=== PATIENT | male | born 1935 | race Caucasian/White ===

== ENCOUNTER 2018-09-15 10:02 | Inpatient (IN) | payer OTHER ==
[~2018-09-15] VITALS: Ht 177.8 cm; Wt 81.1 kg
--- NOTE | ~2018-09-15 | HC ---
[facility] [place] [address] CONSULTATION Name: PO KEITA Room #: 217-P ADM IN M.R.#: [id number] Admission: 09/15/18 ������������������ Attend Phys: Vernon Day MD Discharge: ������������������ Date of : 31 Report #: [id number] THIS REPORT FOR: //name// CC: Vernon Day DATE OF SERVICE: 09/15/2018 HISTORY OF PRESENT ILLNESS: This is an 83-year-old male patient who was evaluated by me for neurological etiologies for the patient's lightheadedness. It looks like this patient's blood pressure is running high. That is going on for at least some time. He took his medication on as needed basis only. The medication was prescribed for hypertension. From all indication, it looks like the hypertension was severe. What was its relation to medication is not clear. The episode he had was transient. It was not associated with altered mental status according to the family. 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 That was several years ago. He saw a neurologist, Dr. Delvalle. I do not know what workup was done. He does have prior history of coronary artery disease. He had no contraindication for doing the MRI. He went to [facility] and looks like they were trying to admit him there, but he wanted to get admitted there. They do a CT scan of the head there and that was unremarkable. He does have a history of hypothyroidism. He is on statin therapy. He thinks part of his problem was because he was taking all the medications at the same time. A 14-point review of systems was carried out. He feels back to his baseline. He does not feel he has any visual, ENT, cardiac, respiratory, GI, , musculoskeletal, constitutional, dermatological, hematological, psychiatric, throat, allergic symptom associated with present symptomatology. In fact, he feels back to his baseline. 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 FAMILY HISTORY: Negative for early age stroke. SOCIAL HISTORY: He has a supportive family and I talked to the patient's daughter and the patient's . PHYSICAL EXAMINATION: NEUROLOGICAL: Examinations indicate he is alert and responsive, able to follow simple and complex command. His speech, concentration, fund of knowledge and memory is at his baseline. Cranial nerve examination 2 through 12 looks unremarkable. Strength, sensation, reflexes and tone looks symmetrical. There is no meningeal sign. There is no cerebellar sign. NECK: There is no carotid bruit. EXTREMITIES: He has no edema. GENERAL: He is moderately built individual who does not have any dysmorphic [address] [address] CONSULTATION Name: PO KEITA Room #: [facility] IN M.R.#: [id number] Admission: 09/15/18 ������������������ Attend Phys: Vernon Day MD Discharge: ������������������ Date of : 31 Report #: [id number] features of eyes, ears and face. HEENT: His vision and hearing looks adequate. CARDIAC: Pulses appeared to be palpable. LUNGS: He has no respiratory difficulty and there are no rhonchi. VITAL SIGNS: Blood pressure is 115/61, respiration is 18, pulse is 68 and temperature is 98. LABORATORY DATA: His labs indicate a white count of 9.0. Blood sugar of 186. RADIOLOGICAL DATA: A CT scan of the head was done in [place] and that does not show any acute abnormality. IMPRESSION: Most likely etiology for the patient's symptom is labile hypertension, but the patient has a significant history of vascular disease, especially coronary artery disease in the past and because of that posterior fossa etiology need to be excluded in this patient. I discussed that aspect with the patient and the family and I suggested an MRI of the brain and MRA of the head and neck. They want to proceed with it. We will schedule that and then follow up on that. RECOMMENDATIONS: 1. MRI of the brain. 2. MRA of the head. 3. MRA of the neck. 4. Other workup including cardiology workup and workup for the labile hypertension. 5. We will look at this workup and follow up with you. Thank you very much for this referral. ��������������������������������������������� ���������������������������������������� By: ��������������������������������������������� [id number] Phill Hector MD /nt
[~2018-09-15 10:02] MED LIST: ASPIRIN EC325 M1 PO; ASPIRIN EC81 M1 PO; COUMADIN 5 MG TA5 M1 PO; CRESTOR 10 MG PO; JANTOVEN7.5 MG PO; LEVOXYL125 MCG PO; LISINOPRIL-HCT1 EACH PO; LORTAB 5 MG/5001 TA1 PO; METOPROLOL SUCCINATE 50 MG PO; NIACIN 500 MG500 M1 PO; OCUVITE TABLET1 EAC1 PO; PERCOCET 5-3251 EACH PO; PHISOHEX148 ML TP; Plavix 75 Mg Tab PO; SIMVASTATIN40 MG PO; ULTRAM 50MG TAB50 MG PO; ZOLOFT 50 MG TA50 M1 PO
[2018-09-15] MEDS ORDERED: LISINOPRIL2.5 MG PO (11:14)
[2018-09-15] MEDS ORDERED: LOPRESSOR25 PO (11:14)
[2018-09-15] MEDS ORDERED: ASPIR 8181 MG PO (11:15)
[2018-09-15] MEDS ORDERED: LIPITOR 20 MG T20 M1 PO (11:15)
[2018-09-15 11:26] VITALS: BP 157/63
[2018-09-15 11:37] LABS: ABSOLUTE NEUTROPHILS 7.3 thou/uL (1.4-8.2); BASOPHILS 0.3 % (0.0-2.0); EOSINOPHILS 0.1 % (0.0-3.0); HEMATOCRIT 44.8 % (42.0-52.0); HEMOGLOBIN 15.6 gm/dL (14.0-18.0); LYMPHOCYTES 14.2 % (24.0-44.0); MCH 31.7 pg (26.0-34.0); MCHC 34.8 g/dL (28.0-37.0); MONOCYTES 4.9 % (1.0-8.0); PLATELET COUNT 166 thou/uL (150-400); POLYS 80.5 % (36.0-66.0); RBC 4.92 mil/uL (4.50-6.00); RDW 13.5 % (10.5-14.5)
[2018-09-15 11:50] LABS: ALBUMIN 3.4 g/dL (3.4-5.0); CALCIUM 8.9 mg/dL (8.5-10.1); CREATININE 0.8 mg/dL (0.7-1.3); POTASSIUM 4.5 mmol/L (3.5-5.1); TOTAL PROTEIN 6.3 g/dL (6.4-8.2)
[2018-09-15 11:55] VITALS: BP 132/72; BP 150/81
[2018-09-15 11:56] VITALS: BP 142/74
--- NOTE | 2018-09-15 11:56 | NUR ---
ORTHOSTATIC BP - LAYING BP 132/72 , HR 61 SITTING BP 150/81 ,HR 69 STANDING BP 142/74, HR 70
--- NOTE | 2018-09-15 14:23 | 2DMMODE ---
[facility] [address] [place] [address] 2 D/M-MODE ECHOCARDIOGRAM Name: PO KEITA Room #: 217-P ADM IN M.R.#: [id number] ������������� Admission: 09/15/18 ������������� Attend Phys: Vernon Day, Discharge: ��� ������������� ��� Date of : 31 Date of Service: 09/15/18 1422 �� Report #: [id number] �������� ��������������������������������������������[id number] THIS REPORT FOR: //name// APPROVED REPORT Study performed: 09/15/2018 13:24:11 EXAM: Comprehensive 2D, Doppler, and color-flow Echocardiogram Patient Location: Bedside Room #: 217 Status: routine BSA: 1.99 HR: 87 bpm BP: 157/63 mmHg Rhythm: NSR Other Information Study Quality: Good Risk Factors: Cardiac Risk Factors: HTN, Hyperlipidemia, DM Indications CAD Hypertension/HDD S/P CABGx3 (2011) Lightheadedness 2D Dimensions IVSd: 11.09 (7-11mm) LVOT Diam: 20.00 (18-24mm) LVDd: 39.33 mm PWd: 10.94 (7-11mm) Ascending Ao: 25.64 (22-36mm) LVDs: 28.04 (25-40mm) Aortic Root: 25.88 mm LV Single Plane 4CH: 60.31 % LV Single Plane 2CH: 68.59 % Biplane EF: 62.8 % Volumes Left Atrial Volume (Systole) Single Plane 4CH: 58.03 mL Single Plane 2CH: 56.29 mL LA ESV Index: 31.00 mL/m2 Aortic Valve [facility] [address] [place] [address] 2 D/M-MODE ECHOCARDIOGRAM Name: PO KEITA Room #: 217-P ADM IN M.R.#: [id number] ������������� Admission: 09/15/18 ������������� Attend Phys: Vernon Day, Discharge: ��� ������������� ��� Date of : 31 Date of Service: 09/15/18 1422 �� Report #: [id number] �������� ��������������������������������������������[id number] AoV Peak Lance.: 1.83 m/s AO Peak Gr.: 13.45 mmHg LVOT Max P.49 mmHg LVOT Max V: 0.79 m/s HADLEY Vmax: 1.30 cm2 Mitral Valve E/A Ratio: 0.7 MV Decel. Time: 206.64 ms MV E Max Lance.: 0.85 m/s MV A Lance.: 1.14 m/s MV PHT: 59.93 ms IVRT: 72.66 ms TDI E/Lateral E': 9.44 E/Medial E': 14.17 Medial E' Lance.: 0.06 m/s Lateral E' Lance.: 0.09 m/s Pulmonary Valve PV Peak Lance.: 0.70 m/s PV Peak Gr.: 1.94 mmHg Pulmonary Vein P Vein S: 0.53 m/s P Vein A: 0.32 m/s P Vein D: 0.33 m/s P Vein A Dur.: 114.2 msec P Vein S/D Ratio: 1.61 Tricuspid Valve TR Peak Lance.: 2.75 m/s RAP Estimate: 7.00 mmHg TR Peak Gr.: 30.25 mmHg PA Pressure: 37.00 mmHg Left Ventricle The left ventricle is normal size. There is normal LV segmental wall motion. There is normal left ventricular wall thickness. Left ventricular systolic function is normal. The left ventricular ejection fraction is within the normal range. LVEF is 60-65%. Mild diastolic dysfunction is present (impaired relaxation pattern). Right Ventricle The right ventricle is normal size. The right ventricular systolic function is normal. Atria The left atrium size is normal. The right atrium size is normal. [facility] [address] [place] [address] 2 D/M-MODE ECHOCARDIOGRAM Name: PO KEITA Room #: 217-P [facility] IN .R.#: [id number] ������������� Admission: 09/15/18 ������������� Attend Phys: Vernon Day, Discharge: ��� ������������� ��� Date of : 31 Date of Service: 09/15/18 1422 �� Report #: [id number] �������� ��������������������������������������������[id number] Aortic Valve The Aortic valve is sclerotic. No aortic regurgitation is present. There is no aortic valvular stenosis. Mitral Valve There is mitral annular calcification. There is no mitral valve regurgitation noted. No evidence of mitral valve stenosis. Tricuspid Valve The tricuspid valve is normal in structure. Mild tricuspid regurgitation. Pulmonary artery pressure is 37 mmHg. Pulmonic Valve The pulmonary valve is normal in structure. Trace pulmonic regurgitation. Great Vessels The aortic root is normal in size. IVC is normal in size and collapses >50% with inspiration. Pericardium There is no pericardial effusion. <Conclusion> The left ventricle is normal size. There is normal left ventricular wall thickness. Left ventricular systolic function is normal. Mild diastolic dysfunction is present (impaired relaxation pattern). The right ventricle is normal size. The left atrium size is normal. The Aortic valve is sclerotic. There is mitral annular calcification. There is no mitral valve regurgitation noted. Mild tricuspid regurgitation. Pulmonary artery pressure is 37 mmHg. ��������������������������������������������� <ELECTRONICALLY SIGNED> ���������������������������������������� By: Teddy Castaneda MD ��������������������������������������������� 09/15/18 1422 142 142 Teddy Castaneda MD /INF
[2018-09-15 16:44] VITALS: BP 115/61
--- NOTE | 2018-09-15 19:00 | NUR ---
Shift summary: Pt remains stable in this shift. No changes of conditions. His BP WNL. Amb in [address] once with me and he is seems to be luciana procedure well. Still having slight dizziness this evening per his report. visited and order MRI in am. Report hand off to on coming RN.
[2018-09-15 21:12] VITALS: BP 134/71
[2018-09-16 03:29] VITALS: BP 143/75
--- NOTE | 2018-09-16 06:15 | NUR ---
PATIENTS CARE WERE ASSUMED AT SHIFT CHANGE. PATIENT WAS ASSESSED AND MEDS WERE PASSED. HOURLY ROUNDING WAS DONE PATIENT C/O UNABLE TO SLEEP DUE TO HE TOOK HIS MEDS AT BEDTIME. PATIENT DID STATE HE WANTS HIS OTHER MEDS AT BEDTINE ONLY. THE BED IS IN A LOW AND LOCKED POSITION
[2018-09-16 07:48] VITALS: BP 131/74
--- NOTE | 2018-09-16 09:19 | EKG ---
[address] [address] ELECTROCARDIOGRAM REPORT Name: PO KEITA Room #: 217-P ADM IN M.R.#: [id number] ������������������ Admission: 09/15/18 ������������������ Attend Phys: Vernon Day MD Discharge: ������������������ Date of : 33 Report #: [id number] ����������������������������������������������������������������� [id number] THIS REPORT FOR: //name// [facility] Test Date: 2018-09-16 Test Time: 07:37:07 Pat Name: PO KEITA Department: Room: 217 P Gender: M Literacy Coordinator: JACE : 1935 Requested By: Maryjo Barton Order Number: [id number] MD: Stanley Guevara Measurements Intervals [place] Rate: 65 P: -13 CT: 136 QRS: 0 QRSD: 90 T: 57 QT: 402 QTc: 418 Interpretive Statements Sinus rhythm Baseline wander in lead(s) V6 Compared to ECG 07/22/2013 16:23:18 No significant change was found Electronically Signed On 09-16-2018 9:19:09 ELECTRONIC EQUIPMENT MAINT TECH by Stanley Guevara [email or web address] ��������������������������������������������� <ELECTRONICALLY SIGNED> ���������������������������������������� By: Stanley Guevara MD, [facility] ��������������������������������������������� 09/16/18918 6 Stanley Guevara MD, FACC /EPI
[2018-09-16 11:07] VITALS: BP 157/77
--- NOTE | 2018-09-16 16:55 | NUR ---
PT CARE ASSUMED APPROX 0700. PT ALERT AND ORIENTED X4. DENIES PAIN AND SOA. VSS. BP MUCH IMPROVED THIS SHIFT. AT BEDSIDE. HAS HAD SEVERAL QUESTIONS MOST OF DAY BUT DENIES QUESTIONS REGARDING POC AT THIS TIME. PT TO DISCHARGE THIS SHIFT. CV AND NEURO APPROVE PT FOR DISCHARGE. DR LAUREANO NOTIFIED APPROX 1500 AND SAID HE'D PUT IN ORDERS. NO ORDERS AT THIS TIME. FAMILY WAITING. MRIs COMPLETED AND REVIEWED PER DR CREWS. NO S/S OF DIZZINESS OR LIGHT-HEADEDNESS. NO DISTRESS NOTED. WILL DISCHARGE PT TIMELY ONCE ORDERS ARE PUT IN.
[2018-09-16] MEDS ORDERED: BYSTOLIC 5 MG5 M1 PO (17:14)
[2018-09-16] MEDS ORDERED: AMLODIPINE BESYL5 M1 PO (17:14)
[2018-09-16] MEDS ORDERED: SYNTHROID125 MC1 PO (17:18)
[2018-09-16] MEDS ORDERED: CELEXA10 MG PO (17:21)
[2018-09-16 17:45] VITALS: BP 157/77
--- NOTE | 2018-09-16 18:00 | NUR ---
PT DISCHARGED AT THIS TIME. NURSING STAFF ESCORTED PT OUT TO PERSONAL VEHICLE WITH .
--- NOTE | 2018-09-18 20:58 | D ---
[facility] [place] [address] DISCHARGE SUMMARY Name: PO KEITA Room #: 217-P [facility] IN M.R.#: [id number] Admission: 09/15/18 ������������������ Attend Phys: Vernon Day MD Discharge: 09/16/18 ������������������ Date of : 31 Report #: [id number] THIS REPORT FOR: //name// CC: Ron Calloway MD [facility] Vernon Day DATE OF SERVICE: 09/16/2018 SUMMARY OF HISTORY AND PHYSICAL: The patient awoke in the product accountant hours of admission and did not feel well. He checked his blood pressure and found it to be markedly elevated at 208/94. His symptoms were vague, but dramatic; he was very unsteady or very dizzy and this worried him. He called his daughter, who came to his home and drove him to the Emergency Room at [facility] [place], which was very close to his home. Immediately prior to leaving his house, he took 50 mg of metoprolol succinate, double his usual dose. His evaluation in the Emergency Room at [facility] was remarkable for a negative noncontrast CT scan, and the Emergency Room physician's agreeing with him that further evaluation should be needed to be sure that he was not having a stroke. His blood pressure slowly came down in the Emergency Room without extra treatment and he was transferred to [facility]. SUMMARY OF HOSPITAL COURSE: His treatment at [facility] was most noticeable by his blood pressure continuing to slowly improve, without further therapy. He was seen in Cardiology consultation by Dr. Ron Calloway, who recommended increasing and changing his blood pressure medications. This was accomplished. Dr. Calloway also recommended consideration to a mild "antidepressants/anxiety" medications, specifically Lexapro or citalopram, noting that small doses would help with possible anxiety driven component for his markedly elevated blood pressure. The patient accepted this recommendation and was started on citalopram. He was seen in Neurology consultation by Dr. 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 Anat Delvalle. It was Dr. Hector's professional opinion that a posterior fossa etiology of his dizziness and accelerated blood pressure be excluded and for this, he recommended an MRI of the brain and an MRA of the head and neck. Those studies were accomplished and were negative, and Dr. Hector felt that there were no neurological evaluations needed. Echocardiogram was specifically important for noting normal left ventricular wall thickness, indicating that overall his blood pressure control had been good. There was mild diastolic dysfunction with an ejection fraction of 60% to 65%. The chamber size and function was normal. Valvular function was normal. Pulmonary artery pressure was 37 mmHg. [facility] [address] [place] [address] DISCHARGE SUMMARY Name: PO KEITA Room #: 217-P DIS IN M.R.#: [id number] Admission: 09/15/18 ������������������ Attend Phys: Vernon Day MD Discharge: 09/16/18 ������������������ Date of : 31 Report #: [id number] LABORATORY DATA: EKG was normal and unchanged from 07/22/2013. Creatinine was 0.8. Total bilirubin was minimally elevated at 2.0, the rest of his admitting laboratory was unremarkable. CK-MB mass was normal. A free T3 was mildly low at 2.0 (2.18 to 3.98), free T4 was normal at 1.1 and TSH was normal at 1.84. WBCs were normal at 9.0 thousand, hemoglobin normal at 15.6. MRI of the head without contrast was negative for changes suggestive of acute infarction. Mild scattered signal abnormalities suggestive of chronic microvascular ischemia were seen. There was no abnormal contrast enhancement. Mild cerebral and cerebellar volume loss was appropriate for his age and mild chronic central white matter microvascular ischemia. MRI/MRA of the arteries in the neck showed a 50% smooth stenosis of the short segment of the proximal right internal carotid artery/carotid bulb and was otherwise normal, with normal vertebral arterial flow. MRA of [place] was also normal. 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 DISCHARGE DIAGNOSES: 1. Accelerated hypertensive episode. 2. Hypertension, reasonably well controlled on a chronic basis given the lack of left ventricular hypertrophy. 3. Stable coronary artery disease, status post coronary artery bypass grafting. 4. Hyperlipidemia. 5. 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 6. Thyroid replacement just slightly low, with a minimally low free T3. 7. There may be an emotional component driving the blood pressure that was alluded to by his as to some "family" stresses. 8. Orthostatic features to his dizziness and lightheadedness when he got up quickly the morning of admission - these had resolved in the hospital. 9. History of obstructive sleep apnea with positional and REM-related sleep apnea and periodic limb movement arousal index. 10. History of amaurosis fugax event in the past, evaluated by Dr. Anat Delvalle. 11. Insomnia, occasional. 12. Other medical problems as in the history and physical. PLAN: The patient is discharged on Bystolic 5 mg in the morning and amlodipine 5 mg in the evening. Levothyroxine 0.125 mg 2 pills on Wednesdays - a slight increase in 1 pill all the other days of the week; citalopram 10 mg 1 in the evening to "take the edge off", according to Dr. Calloway. Aspirin 81 mg daily. [facility] [address] [place] [address] DISCHARGE SUMMARY Name: PO KEITA Room #: 217-P [facility] IN M.R.#: [id number] Admission: 09/15/18 ������������������ Attend Phys: Vernon Day MD Discharge: 09/16/18 ������������������ Date of : 33 Report #: [id number] Atorvastatin 40 mg daily. Melatonin 1-2 tablets as needed for help falling asleep. He is to come see me in my office this following week and bring all his medications with him (a previously scheduled appointment). He is to check his blood pressure at home just once or twice a week. His blood pressure was 150/75 the second hospital day. It is expected that it will come down some over the next week as the amlodipine continues due to its long half-life. The anxiety componet driving his blood pressure will respond over the next 2 to 4 weeks as the citalopram becomes effective. ��������������������������������������������� <ELECTRONICALLY SIGNED> ���������������������������������������� By: Vernon Day MD ��������������������������������������������� 09/18/182057 01 05 Vernon Day MD /nt
--- NOTE | 2018-09-18 20:58 | D ---
[facility] [address] [place] [address] DISCHARGE SUMMARY Name: PO KEITA Room #: 217-P [facility] IN M.R.#: [id number] Admission: 09/15/18 ������������������ Attend Phys: Vernon Day MD Discharge: 09/16/18 ������������������ Date of : 33 Report #: [id number] THIS REPORT FOR: //name// CC: Vernon Day DATE OF SERVICE: 09/16/2018 ADDENDUM JOB ID #[id number] see dictation #1 ��������������������������������������������� <ELECTRONICALLY SIGNED> ���������������������������������������� By: Vernon Day MD ��������������������������������������������� 09/18/188 12 Vernon Day MD /nt
--- NOTE | 2018-09-18 20:58 | H ---
[facility] [place] [address] HISTORY AND PHYSICAL Name: PO KEITA Room #: 217-P [facility] IN M.R.#: [id number] Admission: 09/15/18 ������������������ Attend Phys: Vernon Day MD Discharge: 09/16/18 ������������������ Date of : 31 Report #: [id number] THIS REPORT FOR: //name// CC: Vernon Day DATE OF SERVICE: 09/15/2018 CHIEF COMPLAINT: Lightheadedness and markedly elevated blood pressure and malaise. HISTORY OF PRESENT ILLNESS: The patient was seen in my office on 09/08/2018 at which time his blood pressure was 160/87 and dropped to 147/82 with the passage of time. He reported having a touch of being lightheaded when he first got up in the morning. He was concerned about his blood pressure being elevated, but he was more concerned about having just found a medication called "Calm" that was 77% magnesium that a friend recommended to him. He takes 1/2 teaspoon every third day and it keeps his bowels regulated with little discomfort or concern. It was recommended that he continue to take his 1/2 tablet of his metoprolol ER 50 mg every morning and add lisinopril 2.5 mg in the morning, he got blood drawn and he was to follow up in several weeks. Since then, he has been taking the lisinopril on an "as needed" basis if his blood pressure has been up and not taking it every day. He reports he had a usual restful night with only having to go to the bathroom to urinate several times. When he woke up this morning, lying in bed, he felt great. However, when he stood up, he reports a tremendous amount of unsteadiness or dizziness. He took his blood pressure and found that it was 208/94. He called his daughter who came over and drove him to the Emergency Room at [facility] in [place], which was "just right across the street." He took 2 of the 1/2 tablets of 50mg metoprolol. Then he went to the ER. When he arrived, his blood pressure was recorded at 175/75. His examination was unremarkable and a noncontrast CT scan of the brain was also reported as being negative for any acute changes. With concern over possibly of being in the middle of having a stroke, it was recommended that further evaluation be performed. He was hemodynamically and neurologically stable at that time. His blood pressure systolic drifted down to the in the 140s without any more medication . He was steady enough to stand and urinate in the middle of the room without assistance and arrangements were made for him to be transferred to [facility] for further evaluation. He reported that prior to leaving his home for the Emergency Room, he took 2 of his standard doses of metoprolol: 50 mg tablets of metoprolol succinate extended release, 1/2 tablet daily was his regimen and he took 2 of these 1/2 tablets. They became effective in the Emergency Room and have been controlling his blood pressures throughout the day today here in the hospital as he has not received any further medication for high blood pressure, and it is now 7 pm. [facility] [address] [place] [address] HISTORY AND PHYSICAL Name: PO KEITA Room #: 217-P DIS IN M.R.#: [id number] Admission: 09/15/18 ������������������ Attend Phys: Vernon Day MD Discharge: 09/16/18 ������������������ Date of : 31 Report #: [id number] He has a history of dizziness, hypertension, coronary artery disease, coronary artery bypass grafting, hyperlipidemia, elevated hemoglobin and hematocrit, hyperlipidemia, elevated glucose, constipation. He has Graves' disease treated with radioactive thyroid many years ago. 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 He does not drink and does not smoke. He wishes to be a full code blue. He lives with his . OTHER PMH: He has obstructive sleep apnea. He has positional and REM related sleep apnea, 9 arousal events per hour. Periodic limb movement arousal index of 0.2 events per hour. He had his gallbladder removed on 04/08/[address] Marquez Nicole. MEDICATIONS: AM: Levothyroxine 125 mcg, Metoprolol Succinate 50mg 1/2 tablet, 1 tablet of AREDS 2 preservision 2. PM: ASA 81mg, atorvastatin 40mg, AREDS 2 Preservision. The patients family of , daughter, and son in law were present. PHYSICAL EXAMINATION: HEENT: Unremarkable. The oropharynx is normally moistened. NECK: There is no adenopathy, thyromegaly or masses in the neck. There are no bruits auscultated in the neck. CARDIOVASCULAR: The heart tones are normal and the rhythm is regular. ABDOMEN: Soft, nontender, without hepatosplenomegaly or masses. EXTREMITIES: There is no significant calf edema or lower ankle edema present. NEURO: normal. CURRENT LABORATORY DATA: Unremarkable. ASSESSMENT: 1. Accelerated hypertension when he awoke in the morning and felt terrible with significant blood pressure elevation of 208/94. 2. The patient took double his daily dose of metoprolol succinate prior to going to the Emergency Room, and his blood pressure was only minimally elevated in the Emergency Room to 175/75 and steadily improved throughout the rest of the day without any more medication. 3. Orthostatic features of his dizziness and malaise when he first got up this morning, and with his blood pressure as he and his make adjustments. 4. Coronary artery disease, is stable. 5. Coronary artery bypass grafting history. 6. Other medical problems as mentioned in the history and physical above. 7. LEONIE as reviewed above. [facility] [address] [place] [address] HISTORY AND PHYSICAL Name: PO KEITA Room #: 217-P [facility] IN .R.#: [id number] Admission: 09/15/18 ������������������ Attend Phys: Vernon Day MD Discharge: 09/16/18 ������������������ Date of : 31 Report #: [id number] An echocardiogram today was normal showing only a small amount of diastolic dysfunction with normal intraventricular septum and minimal left ventricular hypertrophy, left ventricular ejection fraction is 60-65%. The right atrium and left atrium are normal in size. Pulmonary artery pressure is estimated at 37 mmHg. It did not show LHV as would be expedted from inadequately treated hypertension. PLAN: Dr. Calloway came and shared a discussion about the patient's plan. Dr. Calloway suggested changing his antihypertensives to Bystolic 5 mg once daily to replace the metoprolol succinate, and adding amlodipine 5mg daily. Stress and anxiety and perhaps depression were mentioned by his daughter, registered nurse who was present since the beginning of the event this morning. A small dose of Lexapro will be strongly recommended to the patient, and Dr. Calloway further explained to the patient how beneficial this medication would be "to take the edge off". MRI scans will be performed tomorrow as well to rule out a stroke, as recomended by the neurologist. ��������������������������������������������� <ELECTRONICALLY SIGNED> ���������������������������������������� By: Vernon Day MD ��������������������������������������������� 09/18/182057 09 06 Vernon Day MD /nt
== END 2018-09-16 18:00 | disposition home or self-care (01) | DRG 305 ==
LOC: 2N 10:02
PROVIDERS: ADMIT Internal Medicine
DX: I10 Essential (primary) hypertension (principal); I25.10 Atherosclerotic heart disease of native coronary artery without angina pectoris; E03.9 Hypothyroidism, unspecified; E78.5 Hyperlipidemia, unspecified; E05.00 Thyrotoxicosis with diffuse goiter without thyrotoxic crisis or storm; G47.00 Insomnia, unspecified; F41.9 Anxiety disorder, unspecified; H54.40 Blindness, one eye, unspecified eye; G47.33 Obstructive sleep apnea (adult) (pediatric); Z95.1 Presence of aortocoronary bypass graft; Z90.49 Acquired absence of other specified parts of digestive tract; Z90.79 Acquired absence of other genital organ(s); Z79.899 Other long term (current) drug therapy; Z82.49 Family history of ischemic heart disease and other diseases of the circulatory system
CPT/HCPCS: 10081

== ENCOUNTER → 2019-11-12 | Outpatient (CLI) | payer OTHER ==
[~2019-11-12] MED LIST changes: +AMLODIPINE BESYL5 M1 PO; +ASPIR 8181 MG PO; +BYSTOLIC 5 MG5 M1 PO; +CELEXA10 MG PO; +LIPITOR 20 MG T20 M1 PO; +LISINOPRIL2.5 MG PO; +LOPRESSOR25 PO; +SYNTHROID125 MC1 PO
== END ==
LOC: SJCVCIMAG 09:41
DX: I25.810 Atherosclerosis of coronary artery bypass graft(s) without angina pectoris (principal); I10 Essential (primary) hypertension; E78.5 Hyperlipidemia, unspecified; Z95.1 Presence of aortocoronary bypass graft

== ENCOUNTER → 2020-07-07 | Outpatient (CLI) | payer OTHER, MEDICARE | LOC: SJCVC 11:13 | PROVIDERS: ATTEND Internal Medicine Cardiovascular Disease | DX: I25.810 Atherosclerosis of coronary artery bypass graft(s) without angina pectoris (principal); R01.1 Cardiac murmur, unspecified; I10 Essential (primary) hypertension; I65.23 Occlusion and stenosis of bilateral carotid arteries; E78.00 Pure hypercholesterolemia, unspecified; E11.9 Type 2 diabetes mellitus without complications; E78.5 Hyperlipidemia, unspecified; Z95.1 Presence of aortocoronary bypass graft; Z79.82 Long term (current) use of aspirin; Z79.899 Other long term (current) drug therapy; Z82.49 Family history of ischemic heart disease and other diseases of the circulatory system ==

== ENCOUNTER → 2021-02-09 | Outpatient (CLI) | payer OTHER, MEDICARE | LOC: SJCVCIMAG 07:48 | PROVIDERS: ATTEND Internal Medicine Cardiovascular Disease | DX: I08.0 Rheumatic disorders of both mitral and aortic valves (principal); I25.10 Atherosclerotic heart disease of native coronary artery without angina pectoris; I10 Essential (primary) hypertension; E78.00 Pure hypercholesterolemia, unspecified; I35.0 Nonrheumatic aortic (valve) stenosis; E11.9 Type 2 diabetes mellitus without complications; Z79.82 Long term (current) use of aspirin; Z79.899 Other long term (current) drug therapy; Z88.0 Allergy status to penicillin; Z95.1 Presence of aortocoronary bypass graft ==